=== PATIENT | female | born 1980 | race Two or more races ===

== ENCOUNTER 2024-09-17 20:00 | Emergency (ER) | payer MEDICAID, OTHER ==
[~2024-09-17] VITALS: Ht 157.5 cm; Wt 44.9 kg
[2024-09-17] MEDS: KETOROLAC TROMETH 60MG/2ML VIAL IM ONE (20:54)
[2024-09-17 21:00] VITALS: BP 121/71; PULSE 80; RESP 17; TEMP 98.1; O2SAT 97
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
[2024-09-17] MEDS ORDERED: IBUP-1454 PO (22:35)
[2024-09-17] MEDS ORDERED: ACET500T58 PO (22:35)
== END 2024-09-17 22:41 | disposition home or self-care (01) ==
LOC: ER 20:00
DX: S16.1XXA Strain of muscle, fascia and tendon at neck level, initial encounter (principal); S39.012A Strain of muscle, fascia and tendon of lower back, initial encounter; M54.12 Radiculopathy, cervical region; Z88.2 Allergy status to sulfonamides; V43.52XA Car driver injured in collision with other type car in traffic accident, initial encounter; Y93.89 Activity, other specified; Y92.410 Unspecified street and highway as the place of occurrence of the external cause; Y99.8 Other external cause status
CPT/HCPCS: 72040; 72100; 96372; 99284; J1885